=== PATIENT | female | born 1975 | race Caucasian/White ===

== ENCOUNTER → 2020-02-10 13:10 | Outpatient (CLI) | payer OTHER, SELFPAY ==
[2020-02-12 13:23] LABS: Covid-19 Nasal PCR Sendout Lex Not Detected
== END ==
PROVIDERS: PCP Pediatrics; Visit Provider Physician Assistant
DX: Z03.818 Encounter for observation for suspected exposure to other biological agents ruled out (principal)
CPT/HCPCS: U0004